=== PATIENT | male | born 1950 | race Caucasian/White ===

== ENCOUNTER 2019-06-01 01:27 | Emergency (ER) | payer MEDICARE ==
[~2019-06-01] VITALS: Ht 188 cm; Wt 113.4 kg
[~2019-06-01 01:27] MED LIST: ASPIRIN EC81 MG PO; GLIMEPIRIDE1 MG PO; JANUMET 50-1,01 EACH PO; LIPITOR40 MG PO; LISINOPRIL40 MG PO; SPECTRAVITE PO; VITAMIN B-12 PO; VITAMIN D2000 UNI1 PO
--- OUTSIDE RECORDS SUMMARY | 2019-06-01 01:31 | XMS REPORT ---
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 Allergies, Adverse Reactions, Alerts Allergy Name Allergy Type Status Severity Reaction(s) Onset Date Inactive Date Treating Clinician Comments levofloxacin DA Active SV 2018-09-20 00:00:00 TAPE DA Active MO 2018-09-20 00:00:00 Iodinated Contrast- Oral and IV Dye DA Active MO 2017-01-05 00:00:00 Medications This patient has no known medications. 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 at 1005 Reported and signed by: Rashid Roger MD CC: Emanuel Zuniga MD Technologist: BRYCE RENEE RT(R) Transcribed D/ (1005) [email or web address] [facility] NAME: SANIYA MONROE [address] PHYS: Emanuel Leal MD : 1950 AGE: 68 SEX: M [place], [place] [address] LOC: Y.308 A PHONE #: [phone] EXAM DATE: 10/25/2018 STATUS: ADM IN FAX #: [phone] RAD #: D/C DT PAGE 1 Signed Report Patient Name: SANIYA MONROE Unit No: [id number] EXAMS: CPT CODE: [id number] XR KNEE 1 OR 2 V RT [id number] <Continued> Orig Print D/T: S: 10/26/2018 (1008) [facility] NAME: SANIYA MONROE [address] PHYS: Emanuel Leal MD : 1950 AGE: 68 SEX: M [place], [place] [address] LOC: Y.308 A PHONE #: [phone] EXAM DATE: 10/25/2018 STATUS: ADM IN FAX #: [phone] RAD #: D/C DT PAGE 2 Signed Report BASIC METABOLIC [id number] 06:45:00* Test Item Value Reference Range Comments SODIUM (test code=NA) 142 mmol/L 136-145 POTASSIUM (test code=K) 5.1 mmol/L 3.5-5.1 CHLORIDE (test code=CL) 105.0 mmol/L 98-107 CARBON DIOXIDE (test code=CO2) 24.3 mmol/L 21-32 GLUCOSE (test code=GLU) 266 mg/dL 70-110 BLOOD UREA NITROGEN (test code=BUN) 30 mg/dL 7-18 GLOMERULAR FILTRATION RATE (test code=GFR) 58.2 >60 Unit of measure: mL/min/1.73 [id number] Range:Healthy Adults >90 mL/min/1.73 m2 For Chronic Kidney Disease: Stage II Mild Decrease in GFR 60-90 Stage III Moderate Decrease in GFR 30-59 Stage IV Severe Decrease in GFR 15-29 Stage V Kidney Failure <15 CREATININE (test code=CREAT) 1.23 mg/dL 0.55-1.30 CALCIUM (test code=CA) 8.7 mg/dL 8.2-10.1 HGB [id number] 06:25:00* Test Item Value Reference Range Comments HEMOGLOBIN (test code=HGB) 11.4 g/dL 12-16 HEMATOCRIT (test code=HCT) 33.4 % 37-47 [id number] 05:38:00* Test Item Value Reference Range Comments GLUBED (test code=GLUBED) 220 mg/dL 60-125 [id number] 20:16:00* Test Item Value Reference Range Comments GLUBED (test code=GLUBED) 270 mg/dL 60-125 [id number] 18:16:00* Test Item Value Reference Range Comments GLUBED (test code=GLUBED) 270 mg/dL 60-125 [id number] 08:17:00* Test Item Value Reference Range Comments GLUBED (test code=GLUBED) 186 mg/dL 60-125 CBC W/AUTO [id number] 10:50:00* Test Item Value Reference Range Comments WHITE BLOOD CELL (test code=WBC) 5.0 K/mm3 5.7-10.5 RED BLOOD CELL (test code=RBC) 4.13 M/mm3 4.2-5.4 HEMOGLOBIN (test code=HGB) 13.9 g/dL 12-16 HEMATOCRIT (test code=HCT) 40.7 % 37-47 MEAN CELL VOLUME (test code=MCV) 99 fL 80-98 MEAN CELL HGB (test code=MCH) 33.7 pg 27-34 MEAN CELL HGB CONCENTRATION (test code=MCHC) 34.2 g/dL 30.8-34.1 RED CELL DISTRIBUTION WIDTH (test code=RDW) 12.6 % 11-16 PLT (test code=PLT) 227 K/mm3 130-400 MEAN PLATELET VOLUME (test code=MPV) 10.5 fL 8.9-12.1 NEUTROPHIL % (test code=NT%) 49.6 % 45-70 LYMPHOCYTE % (test code=LY%) 37.8 % 20-40 MONOCYTE % (test code=MO%) 9.0 % 3-10 EOSINOPHIL % (test code=EO%) 2.4 % 1-5 BASOPHIL % (test code=BA%) 1.0 % 0.0-1.1 NEUTROPHIL # (test code=NT#) 2.47 K/mm3 2.00-7.50 LYMPHOCYTE # (test code=LY#) 1.88 K/mm3 1.50-4.00 MONOCYTE # (test code=MO#) 0.45 K/mm3 0.2-0.8 EOSINOPHIL # (test code=EO#) 0.12 K/mm3 0.04-0.4 BASOPHIL # (test code=BA#) 0.05 K/mm3 0.02-0.10 MANUAL DIFF REQUIRED (test code=MDIFF) NO MANUAL DIFF NUCLEATED RED BLOOD CELL (test code=NRBC) 0 % 0-0 COMPREHENSIVE METABOLIC [id number] 10:48:00* Test Item Value Reference Range Comments SODIUM (test code=NA) 142 mmol/L 136-145 POTASSIUM (test code=K) 4.6 mmol/L 3.5-5.1 CHLORIDE (test code=CL) 104.0 mmol/L 98-107 CARBON DIOXIDE (test code=CO2) 26.5 mmol/L 21-32 GLUCOSE (test code=GLU) 187 mg/dL 70-110 BLOOD UREA NITROGEN (test code=BUN) 24 mg/dL 7-18 GLOMERULAR FILTRATION RATE (test code=GFR) 64.2 >60 Unit of measure: mL/min/1.73 [id number] Range:Healthy Adults >90 mL/min/1.73 m2 For Chronic Kidney Disease: Stage II Mild Decrease in GFR 60-90 Stage III Moderate Decrease in GFR 30-59 Stage IV Severe Decrease in GFR 15-29 Stage V Kidney Failure <15 CREATININE (test code=CREAT) 1.13 mg/dL 0.55-1.30 TOTAL PROTEIN (test code=PROT) 6.9 g/dL 6.4-8.2 ALBUMIN (test code=ALB) 4.0 g/dL 3.4-5.0 GLOBULIN (test code=GLOB) 2.9 g/dL 2.2-4.2 ALBUMIN/GLOBULIN RATIO (test code=A/G) 1.4 0.7-2.0 CALCIUM (test code=CA) 9.8 mg/dL 8.2-10.1 BILIRUBIN TOTAL (test code=BILT) 0.89 mg/dL 0.2-1.00 SGOT/AST (test code=AST) 21.0 U/L 15-37 SGPT/ALT (test code=ALT) 34.0 U/L 12-78 Please note new normal range. ALKALINE PHOSPHATASE TOTAL (test code=ALKP) 63 U/L 46-116
[2019-06-01] MEDS ORDERED: ONDANSETRON HCL INJ 2MG/ML 2ML 2 MG/ML VIAL IV STA (01:32)
[2019-06-01] MEDS ORDERED: SODIUM CHLORIDE 0.9% 1000ML 1,000 ML IV STA (01:32)
[2019-06-01] MEDS ORDERED: MORPHINE SULFATE INJ 4 MG/ML INJ 1ML IV STA (01:32)
[2019-06-01 02:01] LABS: BASOPHILS # (AUTO) 0.1 (0.0-0.1); BASOPHILS % 0.6 % (0.0-1.0); EOSINOPHILS # (AUTO) 0.1 (0.0-0.4); EOSINOPHILS % 0.6 % (0.0-6.0); HEMATOCRIT 40.9 % (38.2-49.6); HEMOGLOBIN 14.3 g/dL (14.0-18.0); LYMPHOCYTES # (AUTO) 2.1 (1.0-3.2); LYMPHOCYTES % 22.2 % (18.0-39.1); MEAN CORPUSCULAR HEMOGLOBIN 34.6 pg (28-32); MONOCYTES # (AUTO) 0.5 (0.2-0.8); MONOCYTES % 5.2 % (4.4-11.3); NEUTROPHILS # (AUTO) 6.8 (2.1-6.9); NEUTROPHILS % 71.1 % (38.7-80.0); PLATELET COUNT 216 x10e3/uL (140-360); RED BLOOD COUNT 4.13 x10e6/uL (4.3-5.7); RED CELL DISTRIBUTION WIDTH 12.6 % (11.7-14.4)
[2019-06-01 02:19] LABS: ALANINE AMINOTRANSFERASE 24 IU/L (0-55); ALBUMIN 4.8 g/dL (3.5-5.0); ALBUMIN/GLOBULIN RATIO 1.7 (0.8-2.0); ALKALINE PHOSPHATASE 64 IU/L (40-150); ANION GAP 20.1 mmol/L (8-16); BLOOD UREA NITROGEN 41 mg/dL (7-26); BUN/CREATININE RATIO 26 (6-25); CALCIUM 10.5 mg/dL (8.4-10.2); CARBON DIOXIDE 20 mmol/L (22-29); CHLORIDE 101 mmol/L (98-107); CREATINE KINASE 269 IU/L (30-200); CREATININE, SERUM 1.57 mg/dL (0.72-1.25); EST GLOMERULAR FILTRATION RATE 44 ML/MIN (60-); GLUCOSE 263 mg/dL (74-118); LIPASE 67 U/L (8-78); POTASSIUM 4.1 mmol/L (3.5-5.1); SODIUM 137 mmol/L (136-145)
[2019-06-01 02:45] LABS: BILIRUBIN,URINE NEGATIVE (NEGATIVE); CLARITY,URINE CLEAR (CLEAR); COLOR,URINE YELLOW (YELLOW); LEUKOCYTE ESTERASE ,URINE NEGATIVE (NEGATIVE); NITRITE,URINE NEGATIVE (NEGATIVE); PROTEIN,URINE DIPSTICK NEGATIVE (NEGATIVE); URINE UROBILINOGEN 0.2 mg/dL (0.2 - 1)
[2019-06-01 02:47] LABS: KETONES,URINE 2+ (NEGATIVE)
--- NOTE | 2019-06-01 02:49 | Diagnostic Imaging Report ---
EXAMINATION: CHEST SINGLE (PORTABLE) INDICATION: Abdominal pain COMPARISON: None FINDINGS: AP view TUBES and LINES: None. LUNGS: A thin arching band opacity along the left lower lung. Low lung volumes. PLEURA: No pleural effusion or pneumothorax. HEART AND MEDIASTINUM: The cardiomediastinal silhouette is mildly enlarged. BONES AND SOFT TISSUES: No acute osseous lesion. Soft tissues are unremarkable. UPPER ABDOMEN: No free air under the diaphragm. IMPRESSION: A thin arching band opacity along the left lower lung may represent left hemidiaphragm, in which case the air beneath the hemidiaphragm may represent large amount of gastric air, although pneumoperitoneum is not excluded. Recommend upright and lateral decubitus abdominal radiographs. Mild cardiomegaly. Signed by: Brody Garza DO on 06/01/2019 2:46 AM
[2019-06-01 02:58] LABS: BACTERIA,URINE FEW /HPF; EPITHELIAL CELLS,URINE FEW /LPF; WBC,URINE (MAN) 0-5 /HPF (0-5)
[2019-06-01 03:03] LABS: URIC ACID CRYSTALS,URINE FEW (FEW)
--- NOTE | 2019-06-01 03:37 | Diagnostic Imaging Report ---
EXAM: CT Abdomen and Pelvis WITHOUT contrast INDICATION: Right lower quadrant pain COMPARISON: None. TECHNIQUE: Abdomen and pelvis were scanned utilizing a multidetector helical scanner from the lung base to the pubic symphysis without administration of IV contrast. Absence of intravenous contrast decreases sensitivity for detection of focal lesions and vascular pathology. Coronal and sagittal reformations were obtained. Routine protocol was performed. IV CONTRAST: None ORAL CONTRAST: None COMPLICATIONS: None RADIATION DOSE: Total DLP: 881 mGy*cm Estimated effective dose: (DLP x 0.015 x size factor) mSv CTDIvol has been reviewed. It is below the limits set by the Radiation Protocol Committee (RPC). Dose modulation, iterative reconstruction, and/or weight based adjustment of the mA/kV was utilized to reduce the radiation dose to as low as reasonably achievable. FINDINGS: LINES and TUBES: None. LOWER THORAX: Triple vessel coronary artery calcifications. Mild bibasilar atelectasis. HEPATOBILIARY: No focal hepatic lesions. No biliary ductal dilation. GALLBLADDER: No radio-opaque stones or sludge. No wall thickening. SPLEEN: No splenomegaly. PANCREAS: No focal masses or ductal dilatation. ADRENALS: No adrenal nodules KIDNEYS/URETERS: There are 2 punctate calculi in the distal ureter at the right ureterovesicular junction, with mild upstream right hydroureteronephrosis. Moderate right and mild left perinephric fat stranding A few small cysts in both kidneys. GI TRACT: No abnormal distention, wall thickening, or evidence of bowel obstruction. The stomach is moderately distended with air and fluid. A few colonic diverticuli without evidence of diverticulitis. The proximal appendix is mildly dilated and distended with stool, measures up to 1.6 cm in diameter (series 2 image 60), without periappendiceal fat stranding. The distal appendix is nondilated. PELVIC ORGANS/BLADDER: Mild circumferential bladder wall thickening and perivesicular fat stranding. LYMPH NODES: No lymphadenopathy. VESSELS: Minimal atherosclerotic calcifications in the aorta and major branches. The infrarenal abdominal aorta is fusiformly dilated up to 3.2 cm. PERITONEUM / RETROPERITONEUM: No free air or fluid. BONES: Degenerative changes in the spine hips and pelvis.. SOFT TISSUES: Unremarkable. IMPRESSION: 1. There are 2 punctate calculi in the distal right ureter at the ureterovesicular junction, with mild upstream right hydroureteronephrosis. Superimposed infection is possible. Urinary bladder findings can be seen with cystitis. 2. Triple vessel coronary artery calcific atherosclerotic disease. 3. Mild infrarenal abdominal aortic aneurysm measures 3.2 cm in diameter, and there is triple vessel coronary artery calcific atherosclerosis. Recommend cardiology referral. 4. The proximal appendix is mildly dilated and distended with stool, measures up to 1.6 cm in diameter, without periappendiceal fat stranding, and the distal appendix is nondilated. Low suspicion for acute appendicitis. Signed by: Brody Garza DO on 06/01/2019 3:34 AM
== END 2019-06-01 04:07 | disposition home or self-care (01) ==
LOC: ER 01:27
DX: R10.31 Right lower quadrant pain (principal); R11.2 Nausea with vomiting, unspecified
CPT/HCPCS: 36415; 71045; 74176; 80053; 81001; 82550; 82553; 83690; 84484; 85025; 99284; J2270; J2405; J7030

== ENCOUNTER 2020-07-10 12:08 | Emergency (ER) | payer MEDICARE ==
[~2020-07-10] VITALS: Ht 188 cm; Wt 113.4 kg
[2020-07-10] MEDS ORDERED: DEXAMETHASONE 4 MG TAB PO STA (12:33)
[2020-07-10] MEDS ORDERED: AZITHROMYCIN250 MG PO (13:45)
[2020-07-10 14:00] VITALS: BP 109/64
== END 2020-07-10 14:01 | disposition home or self-care (01) ==
LOC: ER 12:16
DX: U07.1 COVID-19 (principal); I10 Essential (primary) hypertension; E11.9 Type 2 diabetes mellitus without complications; E78.5 Hyperlipidemia, unspecified; Z85.46 Personal history of malignant neoplasm of prostate; Z96.653 Presence of artificial knee joint, bilateral
CPT/HCPCS: 71045; 99283; J8540

== ENCOUNTER 2021-12-05 11:45 | Inpatient (IN) | payer MEDICARE ==
[~2021-12-05] VITALS: Ht 188 cm; Wt 113.4 kg
[~2021-12-05 11:45] MED LIST changes: +AZITHROMYCIN250 MG PO
[2021-12-05] MEDS ORDERED: ONDANSETRON HCL INJ 2MG/ML 2ML 2 MG/ML VIAL IV PRN ×2 (12:15→14:45)
[2021-12-05] MEDS ORDERED: SODIUM CHLORIDE 0.9% 1000ML 500 ML IV ONE (12:15)
[2021-12-05] MEDS ORDERED: KETOROLAC TROMETHAMINE 30 MG/ML VIAL IV STA (12:15)
[2021-12-05] MEDS ORDERED: TAMSULOSIN HCL 0.4 MG CAP PO SCH (12:15)
[2021-12-05 12:42] LABS: BASOPHILS # (AUTO) 0.1 (0.0-0.1); EOSINOPHILS # (AUTO) 0.1 (0.0-0.4); EOSINOPHILS % 1.2 % (0.0-6.0); HEMATOCRIT 38.7 % (38.2-49.6); HEMOGLOBIN 13.4 g/dL (14.0-18.0); LYMPHOCYTES % 28.9 % (18.0-39.1); MEAN CORPUSCULAR HEMOGLOBIN 34.7 pg (28-32); MEAN CORPUSCULAR HGB CONC 34.6 g/dL (31-35); MEAN CORPUSCULAR VOLUME 100.3 fL (81-99); MONOCYTES # (AUTO) 0.6 (0.2-0.8); MONOCYTES % 8.1 % (4.4-11.3); NEUTROPHILS # (AUTO) 4.1 (2.1-6.9); NEUTROPHILS % 60.5 % (38.7-80.0); PLATELET COUNT 312 x10e3/uL (140-360); RED BLOOD COUNT 3.86 x10e6/uL (4.3-5.7)
[2021-12-05 12:55] LABS: ANION GAP 15.2 mmol/L (8-16); CREATININE, SERUM 1.88 mg/dL (0.72-1.25); POTASSIUM 4.2 mmol/L (3.5-5.1)
[2021-12-05 12:56] LABS: ALBUMIN 3.4 g/dL (3.5-5.0); ALBUMIN/GLOBULIN RATIO 0.8 (0.8-2.0); CALCIUM 9.8 mg/dL (8.4-10.2)
[2021-12-05 13:42] LABS: CLARITY,URINE TURBID (CLEAR); COLOR,URINE RED (YELLOW)
[2021-12-05 13:43] LABS: KETONES,URINE >=160 (NEGATIVE); LEUKOCYTE ESTERASE ,URINE LARGE (NEGATIVE); NITRITE,URINE POSITIVE (NEGATIVE); PROTEIN,URINE DIPSTICK >=300 (NEGATIVE); URINE UROBILINOGEN >=8 mg/dL (0.2 - 1)
[2021-12-05 14:00] LABS: BACTERIA,URINE FEW /HPF; EPITHELIAL CELLS,URINE RARE /LPF; RBC,URINE >50 /HPF (0-5); WBC,URINE (MAN) 0-5 /HPF (0-5)
[2021-12-05] MEDS ORDERED: FENTANYL CITRATE/PF 100MCG/2 ML INJ ONE (14:06)
[2021-12-05] MEDS ORDERED: ONDANSETRON HCL INJ 2MG/ML 2ML 2 MG/ML VIAL ONE ×2 (14:06→17:01)
[2021-12-05] MEDS ORDERED: LIDOCAINE HCL 2% LOCAL INJ 5 ML SDV VIAL INJ ONE (14:06)
[2021-12-05] MEDS ORDERED: POVIDONE IODINE 0.05% 0.05 % ML PO ONE (14:06)
[2021-12-05] MEDS ORDERED: METOCLOPRAMIDE HCL 10 MG/2ML VIAL ONE (14:06)
[2021-12-05] MEDS ORDERED: PROPOFOL IV EMULSION 10 MG/ML 20 ML VIAL ONE (14:06)
[2021-12-05] MEDS ORDERED: SUCCINYLCHOLINE CHLORIDE 20 MG/ML 10ML VIAL ONE (14:06)
[2021-12-05] MEDS ORDERED: Morphine 4mg Syringe 4 MG/ML INJ IV PRN (14:45)
[2021-12-05] MEDS ORDERED: B&O 60MG R/S 60 MG SUPP PR ONE (15:00)
[2021-12-05] MEDS ORDERED: IOPAMIDOL 300MG/ML 50ML INFUS..BTL IV ONE (15:00)
[2021-12-05] MEDS ORDERED: B&O 60MG R/S 60 MG SUPP PR PRN (16:45)
[2021-12-05] MEDS ORDERED: PHENAZOPYRIDINE HCL 100 MG TAB PO PRN (16:45)
[2021-12-05 18:05] VITALS: BP 122/74
[2021-12-05] MEDS ORDERED: LISINOPRIL5 MG PO (18:15)
[2021-12-05] MEDS ORDERED: ERLEADA60 MG PO (18:18)
[2021-12-05] MEDS: SODIUM CHLORIDE 0.9% 1000ML 1,000 ML IV SCH (18:22)
[2021-12-05 20:00] VITALS: BP 122/74
[2021-12-05 21:40] VITALS: BP 124/76
[2021-12-06] VITALS: BP 119/73
[2021-12-06] MEDS: SODIUM CHLORIDE 0.9% 1000ML 1,000 ML IV SCH (04:06)
[2021-12-06 05:32] LABS: BASOPHILS # (AUTO) 0.1 (0.0-0.1); BASOPHILS % 0.9 % (0.0-1.0); EOSINOPHILS # (AUTO) 0.1 (0.0-0.4); EOSINOPHILS % 2.1 % (0.0-6.0); HEMATOCRIT 33.5 % (38.2-49.6); HEMOGLOBIN 11.1 g/dL (14.0-18.0); LYMPHOCYTES # (AUTO) 1.6 (1.0-3.2); LYMPHOCYTES % 23.9 % (18.0-39.1); MEAN CORPUSCULAR HEMOGLOBIN 34.2 pg (28-32); MEAN CORPUSCULAR HGB CONC 33.1 g/dL (31-35); MEAN CORPUSCULAR VOLUME 103.1 fL (81-99); MONOCYTES # (AUTO) 0.7 (0.2-0.8); MONOCYTES % 10.2 % (4.4-11.3); NEUTROPHILS # (AUTO) 4.2 (2.1-6.9); NEUTROPHILS % 62.6 % (38.7-80.0); PLATELET COUNT 275 x10e3/uL (140-360); RED BLOOD COUNT 3.25 x10e6/uL (4.3-5.7)
[2021-12-06 05:40] VITALS: BP 131/78
[2021-12-06 05:57] LABS: ANION GAP 11.6 mmol/L (8-16); CALCIUM 8.4 mg/dL (8.4-10.2); CREATININE, SERUM 1.35 mg/dL (0.72-1.25); POTASSIUM 4.6 mmol/L (3.5-5.1)
[2021-12-06 07:55] VITALS: BP 145/81
[2021-12-06 08:55] VITALS: BP 145/81
[2021-12-06] MEDS ORDERED: SOLIFENACIN SUCCINATE 5 MG TAB PO SCH (09:00)
== END 2021-12-06 12:09 | disposition home or self-care (01) | DRG 660 ==
LOC: ER 12:11 → ERHOLD 14:47 → MED/SURG 17:59
PROVIDERS: ADMIT Internal Medicine; ATTEND Internal Medicine
PROC: 0T788DZ Dilation of Bilateral Ureters with Intraluminal Device, Via Natural or Artificial Opening Endoscopic (ICD-10-PCS; 2021-12-05)
PROC: 0TBB8ZZ Excision of Bladder, Via Natural or Artificial Opening Endoscopic (ICD-10-PCS; 2021-12-05)
PROC: BT141ZZ Fluoroscopy of Kidneys, Ureters and Bladder using Low Osmolar Contrast (ICD-10-PCS; 2021-12-05)
PROC: 0TCB8ZZ Extirpation of Matter from Bladder, Via Natural or Artificial Opening Endoscopic (ICD-10-PCS; principal; 2021-12-05 14:30)
DX: N13.2 Hydronephrosis with renal and ureteral calculous obstruction (principal); C79.11 Secondary malignant neoplasm of bladder; N17.9 Acute kidney failure, unspecified; E78.00 Pure hypercholesterolemia, unspecified; R31.0 Gross hematuria; N39.46 Mixed incontinence; D64.9 Anemia, unspecified; N28.1 Cyst of kidney, acquired; E66.9 Obesity, unspecified; Z68.32 Body mass index [BMI] 32.0-32.9, adult; E11.22 Type 2 diabetes mellitus with diabetic chronic kidney disease; I12.9 Hypertensive chronic kidney disease with stage 1 through stage 4 chronic kidney disease, or unspecified chronic kidney disease; N18.30 Chronic kidney disease, stage 3 unspecified; Z87.891 Personal history of nicotine dependence; Z88.1 Allergy status to other antibiotic agents; Z88.8 Allergy status to other drugs, medicaments and biological substances; Z87.442 Personal history of urinary calculi; Z85.46 Personal history of malignant neoplasm of prostate; Z20.822 Contact with and (suspected) exposure to COVID-19; Z82.49 Family history of ischemic heart disease and other diseases of the circulatory system; E78.5 Hyperlipidemia, unspecified; N32.89 Other specified disorders of bladder; Z79.82 Long term (current) use of aspirin; Z79.84 Long term (current) use of oral hypoglycemic drugs
CPT/HCPCS: 36415; 74176; 74420; 80048; 80053; 81001; 82948; 83970; 84550; 85025; 87086; 88304; 88307; 88342; 94799; 99284; C1769; C2617; J0330; J0696; J1885; J2001; J2405; J2765; J3010; J7030; U0002

== ENCOUNTER 2021-12-23 18:46 | Emergency (ER) | payer MEDICARE ==
[~2021-12-23] VITALS: Ht 188 cm; Wt 113.4 kg
[~2021-12-23 18:46] MED LIST changes: +DEXTROSE 50% SYRINGE 50 ML IV ONE; +EPINEPHRINE HCL SYRINGE ONE; +ERLEADA60 MG PO; +ETOMIDATE 2 MG/ML 10 ML INJ IV ONE; +LISINOPRIL5 MG PO; +MAGNESIUM SULF 1GRAM/DEXTROSE PREMIX BAG 100ML IV ONE; +NALOXONE HCL INJ 0.4 MG/ML AMP ONE; +SODIUM CHLORIDE FLUSH 10 ML SYR ONE; +SUCCINYLCHOLINE CHLORIDE 20 MG/ML 10ML VIAL ONE
[2021-12-23] MEDS ORDERED: SODIUM CHLORIDE 0.9% 1000ML 1,000 ML IV SCH ×2 (19:15→21:45)
[2021-12-23 19:43] LABS: BASOPHILS # (AUTO) 0.1 (0.0-0.1); BASOPHILS % 0.6 % (0.0-1.0); EOSINOPHILS # (AUTO) 0.1 (0.0-0.4); EOSINOPHILS % 0.6 % (0.0-6.0); HEMATOCRIT 32.5 % (38.2-49.6); HEMOGLOBIN 10.9 g/dL (14.0-18.0); LYMPHOCYTES # (AUTO) 1.4 (1.0-3.2); LYMPHOCYTES % 11.7 % (18.0-39.1); MEAN CORPUSCULAR HGB CONC 33.5 g/dL (31-35); MEAN CORPUSCULAR VOLUME 101.2 fL (81-99); MONOCYTES # (AUTO) 1.1 (0.2-0.8); NEUTROPHILS # (AUTO) 9.6 (2.1-6.9); NEUTROPHILS % 77.2 % (38.7-80.0); PLATELET COUNT 394 x10e3/uL (140-360); RED BLOOD COUNT 3.21 x10e6/uL (4.3-5.7); RED CELL DISTRIBUTION WIDTH 12.6 % (11.7-14.4)
[2021-12-23] MEDS ORDERED: ACETAMINOPHEN 1000 MG/100 ML IV SCH (19:45)
[2021-12-23] MEDS ORDERED: PIPERACILLIN/TAZOBACTAM 4.5 GM in SODIUM CHLORIDE 0.9% 100 ML IV SCH (19:45)
[2021-12-23 19:57] LABS: CLARITY,URINE TURBID (CLEAR); COLOR,URINE YELLOW (YELLOW); KETONES,URINE NEGATIVE (NEGATIVE); LEUKOCYTE ESTERASE ,URINE LARGE (NEGATIVE); NITRITE,URINE POSITIVE (NEGATIVE); PROTEIN,URINE DIPSTICK >=300 (NEGATIVE); URINE UROBILINOGEN 0.2 mg/dL (0.2 - 1)
[2021-12-23 20:00] LABS: ALBUMIN 2.4 g/dL (3.5-5.0); ALBUMIN/GLOBULIN RATIO 0.5 (0.8-2.0); CALCIUM 8.7 mg/dL (8.4-10.2); CREATININE, SERUM 1.38 mg/dL (0.72-1.25)
[2021-12-23 20:02] LABS: WBC,URINE (MAN) >50 /HPF (0-5)
[2021-12-23 20:03] LABS: BACTERIA,URINE MANY /HPF
[2021-12-23] MEDS ORDERED: LACTATED RINGER'S 1,000 ML INJ ONE (21:00)
[2021-12-23] MEDS ORDERED: ONDANSETRON HCL INJ 2MG/ML 2ML 2 MG/ML VIAL IV PRN (21:45)
[2021-12-23] MEDS ORDERED: Morphine 4mg Syringe 4 MG/ML INJ IV PRN (21:45)
== END 2021-12-24 05:05 | disposition expired ==
LOC: ER 18:56 → ERHOLD 21:46 → UNDOADMIN 21:46 → ER 12-24 05:05
DX: I46.9 Cardiac arrest, cause unspecified (principal); R50.9 Fever, unspecified; R94.31 Abnormal electrocardiogram [ECG] [EKG]; N20.0 Calculus of kidney; N12 Tubulo-interstitial nephritis, not specified as acute or chronic; Z20.822 Contact with and (suspected) exposure to COVID-19
CPT/HCPCS: 31500; 36415; 70450; 70486; 71045; 74176; 80053; 81001; 83605; 85025; 87040; 87086; 92950; 93005; 94799; 99285; J0131; J0171; J0330; J2310; J2543 ×2; J3475; J7030 ×2; J7050 ×2; J7121; J7799; U0002